=== PATIENT | male | born 1995 | race Caucasian/White ===

== ENCOUNTER 2017-01-06 12:35 | Emergency (ER) | payer OTHER ==
[2017-01-06] MEDS ORDERED: NS 0.9% 1000 ML* 1,000 ML IV ONE (13:08)
[2017-01-06] MEDS ORDERED: Ondansetron INJ* 2 MG/ML VIAL IV ONE (13:10)
--- NOTE | 2017-01-06 13:21 | ED ---
Abdominal Pain/Male - HPI Summary HPI Summary: Patient [place] from [place] with [place] of fevers, nausea/vomiting, RLQ pain described as sharp and non-radiating, generalized fatigue and weakness and diarrhea x 2-3 days. He was seen at [place] today with continuing pain and fevers. Today at 101.9 and given ibuprofen with effect. On exam in [place], + rebound; + mcburney's. Denies travel or camping. 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 He continues to state he's "burning up." Denies ill contacts. Diarrhea is loose and brown. Denies hematemesis or melena. Denies urinary and back symptoms. Denies CRUMP, neck pain/stiffness, photophobia. Not worse or better with food or position. Immunizations are UTD. Denies health problems and takes no medications. Denies muscle aches, but states his body feels "heavy." Family history non-contributory. - History of Current Complaint Chief Complaint: EDAbdPain Stated Complaint: ABD PAIN/FEVER Time Seen by Provider: 01/06/17 12:44 Hx Obtained From: Patient Onset/Duration: Sudden Onset Timing: Constant Severity Initially: Moderate Severity Currently: Moderate Pain Intensity: 5 Pain Scale Used: 0-10 Numeric Location: Discrete At: RLQ Radiates: No Character: Sharp Aggravating Factor(s): Nothing Associated Signs And Symptoms: Positive: Nausea, Vomiting, Diarrhea - Risk Factors Testicular Torsion: Negative Cardiac Risk Factors: Negative - Allergies/Home Medications Allergies/Adverse Reactions: Allergies Allergy/AdvReac Type Severity Reaction Status Date / Time No Known Allergies Allergy Verified 01/06/17 14:55 PMH/Surg Hx/FS Hx/Imm Hx Previously Healthy: Yes - Immunization History Hx Pertussis Vaccination: No Immunizations Up to Date: Unable to Obtain/Confirm Infectious Disease History: No Infectious Disease History: Denies: Traveled Outside the [place] in Last 30 Days - Social History Occupation: Unemployed, Student Lives: Dormitory/Roommates Alcohol Use: None Hx Substance Use: No Substance Use Type: Reports: None Hx Tobacco Use: No Smoking Status (MU): Never Smoked Tobacco Review of Systems - ROS Summary Review of Systems Summary: Constitutional: The endorses fever. + CRUMP, + sweats and chills. HEENT: Head: The patient denies eye pain, ear pain or throat pain. Eyes: The patient denies diplopia, blurry vision, eye pain, eye discharge, photophobia. Throat: The patient denies sore throats or hoarseness. Cardiovascular: The patient denies chest pain, palpitations, syncope, night cramps, or orthostasis. Respiratory: The patient denies cough, sputum production, hemoptysis, dyspnea, wheezing. Gastrointestinal: The patient denies odynophagia, dysphagia, hematemesis, melenemesis. Endorses RLQ abdominal pain, diarrhea, nausea or vomiting. Denies constipation. Genitourinary: Patient denies dysuria, hematuria, or pyuria. Patient denies back pain. Denies vaginal discharge, vaginal bleeding. Denies other urinary symptoms. Muscles: The patient denies myalgia, strain or weakness. Joints: The patient denies arthralgia and/or arthritis. Neurologic: The patient denies loss of consciousness, or seizure. Dermatologic: The patient denies hyperpigmentation, rash, or photosensitivity. Positive: Fever, Fatigue Negative: Photophobia, Blurred Vision, Diplopia, Drainage ENT: Negative Cardiovascular: Negative Respiratory: Negative Positive: Vomiting, Diarrhea, Nausea Genitourinary: Negative Positive: no symptoms reported, see HPI Positive: Myalgia - feels "heavy" Skin: Negative Psychological: Normal All Other Systems Reviewed And Are Negative: Yes Physical Exam - Summary Physical Exam Summary: Appearance: WDW, comfortable, pleasant, alert Skin: Soft dry skin, no lesions. Nailbeds pink with no cyanosis or clubbing. No petechia noted. Eyes: CONG, EOMI, Conjunctiva pink with no redness or exudates. Mouth: Dentition without lesions. Moist mucosa Neck: Full range of motion. Palpable thyroid. Trachea at midline. No lymphadenopathy. Pulm: Chest symmetrical expansion. No deformities on posterior chest wall. Lungs clear to auscultation and percussion, without adventitious sounds. CV: No JVD. No deformities on anterior chest wall. Heart soundsRRR, Normal S1 and single S2. No S3, S4, rubs, or murmurs. Carotids 2+ bilaterally without bruits. . exam not performed Abd: Soft, tender, bowel sounds in all 4 quadrants. Pain on light palpation of the RLQ. Pain on palpation of suprapubic region. Postitive obturator. Negative gage's. Tenderness at Mcburney's point. Musculoskeletal: Flexion and extension of neck limited d/t pain. Brudzynski and Kernig sign negative. No deformities noted. Pulses full and equal. Neuro: Motor strength is 5/5 in upper and lower extremities bilaterally. A&OX3 Psych: Logical, coherent Triage Information Reviewed: Yes Vital Signs On Initial Exam: Initial Vitals Temp Pulse Resp BP Pulse Ox 97.0 F 94 20 138/52 98 01/06/17 12:41 01/06/17 12:41 01/06/17 12:41 01/06/17 12:41 01/06/17 12:41 Vital Signs Reviewed: Yes Appearance: Positive: Well-Nourished, Ill-Appearing Skin: Positive: Warm, Skin Color Reflects Adequate Perfusion Head/Face: Positive: Normal Head/Face Inspection Eyes: Positive: EOMI, CONG, Conjunctiva Clear Neck: Positive: Supple, No Lymphadenopathy Respiratory/Lung Sounds: Positive: Clear to Auscultation, Breath Sounds Present Cardiovascular: Positive: Normal, RRR, Pulses are Symmetrical in both Upper and Lower Extremities Abdomen Description: Positive: No Organomegaly, Soft, McBurney's Point Tenderness, Other: - tenderness over suprapubic and RLQ. Negative: CVA Tenderness (R), CVA Tenderness (L), Distended, Guarding Bowel Sounds: Positive: Present Musculoskeletal: Positive: Strength/ROM Intact Neurological: Positive: Sensory/Motor Intact, Alert, Oriented to Person Place, Time, Speech Normal Psychiatric: Positive: Normal AVPU Assessment: Alert - [place] Coma Scale Coma Scale Total: 15 Diagnostics - Vital Signs Vital Signs Temp Pulse Resp BP Pulse Ox 01/06/17 12:41 97.0 F 94 20 138/52 98 - Laboratory Result Diagrams: 01/06/17 13:40 01/06/17 13:40 Lab Statement: Any lab studies that have been ordered have been reviewed, and results considered in the medical decision making process. Abdominal Pain Fem Course/Dx - Course Course Of Treatment: During the course of treatment, patient was evaluated for RLQ pain, diarrhea, N/V and fever. Given ibuprofen 3 hours ago with effect. 102 to 99.1 on arrival. VS otherwise stable. Obtained a CT scan of the abd/ pelvis d/t RLQ pain. He is given 4mg zofran, 4mg morphine during course with effect. Obtained labs and blood cultures. UA ok. WBC OK and other labs are all stable except for an elevated CRP. During the course, his temperature remained stable. IMPRESSION: NORMAL APPENDIX. THICKENING OF THE CECAL TIP AND PROMINENT, LIKELY REACTIVE,. LYMPH NODES IN THE PERICECAL REGION ARE MOST LIKELY SECONDARY TO TYPHLITIS, LESS LIKELY. INFLAMMATORY BOWEL DISEASE. Discussed case with Dr. Loving. Called Dr. Greenberg (radiologist) to discuss CT findings, especially Typhlitis. He stated the final read was IBD. Patient has never had IBD symptoms prior to this, and this may be a new finding. On re- examination, patient is stating he was able to give a stool sample and returned with an orange color (this is new.) He is given cipro and metronidazole for possible c. diff. Cultures sent and are awaiting. Will call with results. Zofran and pain management given. He is encouraged to rest, bland diet and should return to the ED if symptoms worsen. He is Ok and understands this plan and voices no concerns at this time. Assessment/Plan: Will call with any abnormal results and the final of the stool culture. Covering for c. diff and other travelers diarrhea with cipro and flagyl. - Diagnoses Differential Diagnosis/HQI/PQRI: Appendicitis, Other - diarrhea, fever, gastroenteritis Provider Diagnoses: Gastroenteritis Discharge - Discharge Plan Condition: Stable Disposition: HOME Prescriptions: Ciprofloxacin TAB* [Cipro 500 MG TAB*] 500 mg PO BID #14 tab Metronidazole [Flagyl 500 MG TAB] 500 mg PO TID #1 tab Ondansetron ODT TAB* [Zofran 4 MG Odt TAB*] 4 mg PO Q6H PRN #12 tab.odt MDD 4 PRN Reason: Nausea traMADol TAB* [Ultram*] 50 mg PO Q12H PRN #6 tab MDD 2 PRN Reason: Pain Patient Education Materials: Traveler's Diarrhea (ED), Gastroenteritis (ED), Clostridium Difficile Infection (ED) Referrals: [facility] - Jaswant NO [Primary Care Provider] - Additional Instructions: Zofran as needed for nausea Pain medication as needed Will call with results.
[2017-01-06 14:00] LABS: Hematocrit 48 % (42-52); Hemoglobin 16.2 g/dl (14.0-18.0); Mean Corpuscular HGB Conc 34 g/dl (31-36); Mean Corpuscular Hemoglobin 30 pg (27-31); Mean Corpuscular Volume 87 fL (80-94); Mean Platelet Volume 9 um3 (7.4-10.4); Red Blood Count 5.49 10^6/ul (4.0-5.4); Red Cell Distribution Width 14 % (10.5-15); White Blood Count 8.6 10^3/ul (3.5-10.8)
[2017-01-06 14:07] LABS: Urine Bacteria Absent (Absent); Urine Bilirubin Negative (Negative); Urine Glucose Negative (Negative); Urine Nitrite Negative (Negative)
[2017-01-06 14:11] LABS: Albumin 4.4 g/dL (3.2-5.2); C Reactive Protein 176.57 mg/L (< 5.00); Calcium 9.8 mg/dL (8.6-10.3); EGFR African American 123.8 (>60); EGFR Non-African American 96.3 (>60); Globulin 3.7 g/dL (2-4); Potassium 3.9 mmol/L (3.5-5.0); Total Bilirubin 0.4 mg/dL (0.2-1.0); Total Protein 8.1 g/dL (6.4-8.9)
[2017-01-06] MEDS ORDERED: Iohexol 300* (CONTRAST) 10 ML SDV IV ONE (15:14)
--- NOTE | 2017-01-06 15:53 | RAD ---
INDICATION: Right lower quadrant pain. Fever. COMPARISON: None TECHNIQUE: Axial source images were obtained from the hemidiaphragms to the symphysis pubis following administration of oral and intravenous contrast. 81 mL Omnipaque 300 was utilized. Coronal and sagittal reconstructed images were acquired. Lung bases: The lung bases are clear. Liver: The liver is normal in size. There are no masses. There is no ductal dilatation. Gallbladder: There are no calcified gallstones. There is no evidence of wall thickening or pericholecystic fluid. Spleen: The spleen is normal in size. There are no masses. Pancreas: There is no focal pancreatic mass or ductal dilatation. Adrenal glands: There is no evidence of adrenal mass. Kidneys: The kidneys are normal in size and position. There are prompt nephrograms and there is prompt excretion bilaterally. There are no renal parenchymal masses. There is no evidence of nephrolithiasis. Adenopathy: There are numerous mildly prominent lymph nodes in the pericecal region/right lower quadrant Fluid collections: There are no free or localized fluid collections. Vessels:There are no significant atherosclerotic changes involving the aorta. There is no focal aneurysm. The iliac vessels are normal in caliber. The IVC appears normal. GI tract: The upper GI tract is normal. There is mild mural thickening of the terminal ileum. There is moderate thickening of the cecal tip. The appendix is normal. The remainder the colon is normal.. Pelvic organs: The uterus and adnexa appear normal Bladder: There are no bladder masses. Abdominal and pelvic soft tissues: The extraperitoneal abdominal and pelvic soft tissues appear normal.. Osseous structures: There are no acute osseous findings. Other: None IMPRESSION: NORMAL APPENDIX. THICKENING OF THE CECAL TIP AND PROMINENT, LIKELY REACTIVE, LYMPH NODES IN THE PERICECAL REGION ARE MOST LIKELY SECONDARY TO TYPHLITIS, LESS LIKELY INFLAMMATORY BOWEL DISEASE.
[2017-01-06 17:37] VITALS: BP 120/58
== END 2017-01-06 17:36 | disposition home or self-care (01) ==
LOC: ED 12:35
DX: K52.9 Noninfective gastroenteritis and colitis, unspecified (principal)
CPT/HCPCS: 36415; 74177; 80053; 81003; 81015; 83605; 83690; 85025; 86140; 87040; 96374; 96375; 99283; J2405; Q9967